=== PATIENT | male | born 1935 | race Caucasian/White ===

== ENCOUNTER 2016-08-08 14:31 | Inpatient (IN) | payer MEDICARE, OTHER ==
--- NOTE | ~2016-08-08 | DS ---
Discharge Summary [facility] [address] [place]. [address] NAME: HUA MINER : 33 STATUS : DIS IN PAT#: [id number] AGE: 81 ADM/REG DATE : 08/08/16 MR#: [id number] REPORT SERV DATE: 08/18/16 DICTATED BY: BRIANNA BENNETT DATE: 08/17/16 REPORT STATUS : Draft TRANSCRIBED BY: GERBER DATE: 08/17/16 Data Collection from hospitalization DISCHARGE DIAGNOSES: 1. Acute on chronic congestive heart failure. 2. Diabetes mellitus. 3. Ventricular tachycardia. 4. Moderate aortic stenosis. 5. Hyperlipidemia. 6. Ischemic cardiomyopathy. 7. History of orthostatic hypotension. 8. Former smoker. CONSULTATIONS: None. PROCEDURES: None. DISCHARGE MEDICATIONS: Xanax 0.125 to 0.25 mg at bedtime as needed, Pacerone 100 mg daily, vitamin D one tablet daily, Aricept 10 mg at bedtime, ferrous sulfate 325 mg daily, folic acid 1 mg daily, Glucophage 1000 mg twice a day, Crestor 20 mg at bedtime, Entresto 1 tablets twice a day, Zoloft 50 mg daily, Demadex 20 mg as directed, and Ultram 50 mg twice a day as needed. CONDITION AT DISCHARGE: Stable. DISPOSITION: The patient was discharged home on a low-sodium diet with activities as instructed. He will follow up with me on 09/21/2016 and will follow up in [facility] on 08/16/2016. HOSPITAL COURSE: This is an 81-year-old man who has acute on chronic systolic congestive heart failure. There have been a significant change in his clinical status. It was felt that he would need to have adjustment of his medications and further investigative studies as well as IV diuresis. He was admitted to the hospital at this time for further evaluation and treatment. Upon admission, an echocardiogram was performed. He has moderate left ventricle dysfunction with left ventricle ejection fraction of 35%, unchanged from 05/20/2016. Left ventricular diastolic dysfunction with moderate left atrial dilatation, right ventricle systolic function was moderately impaired. There was aortic sclerosis with [id number] stenosis unchanged from previous moderate severe mitral regurgitation which had progressed from a previous study. The following day, he was much improved overnight. The patient remained stable over the next couple of days. He had trace lower extremity edema. Discharge planning was performed. He was evaluated by Physical Therapy. On 08/11/2016, he was comfortable, he was alert and cooperative, his lungs were clear. Discharge instructions were given. Due to his improved and stable condition, he was discharged home with the above stated instructions. Information collected by: Desirae Sullivan Discharge Summary [facility] [address] [facility] [address] NAME: HUA MINER : 33 STATUS : DIS IN PAT#: [id number] AGE: 81 ADM/REG DATE : 08/08/16 MR#: [id number] REPORT SERV DATE: 08/18/16 DICTATED BY: BRIANNA BENNETT DATE: 08/17/16 REPORT STATUS : Draft TRANSCRIBED BY: GERBER DATE: 08/17/16 I submit the above information as my discharge summary. EMORY/GERBER Brianna Bennett M.D. / [id number] CC: Jose Villagran D.O.
[~2016-08-08 14:31] MED LIST: ADVIL PO; ARICEPT10 PO; ARICEPT5 PO; ASAB PO; BETAPACE80 PO; CORDARONE PO; CYANO1000T PO; FEOSOL200 MG PO; FERROUS SULF325 M1 PO; FOLIC PO; GLUCOV5 PO; GLUCPH PO; HYDROCHLOROT12.5 MG PO; LIDODERM TOP; LOTE5 PO; MICROZIDE PO; T PO; TOPXL25 PO; VICTOZA18 MG/3 ML SC; VITAMIN B-121000 MC1 SL; X25 PO; XANAX2 MG PO; ZOCOR20 PO; ZOL50 PO; [UNRECOGNIZED DRUG - REMARK]
[2016-08-08] MEDS ORDERED: VITAMIN B PO (14:59)
[2016-08-08] MEDS ORDERED: ZOL50 PO (14:59)
[2016-08-08] MEDS ORDERED: ULTRAM50 PO (15:06)
[2016-08-08 15:18] LABS: A/G RATIO 0.9 (0.7-1.9); ALBUMIN 3.6 G/DL (3.5-5.0); ALKALINE PHOSPHATASE 71 U/L (45-117); BUN (BLOOD UREA NITROGEN) 13 MG/DL (6-23); CALCIUM, SERUM 9.4 MG/DL (8.5-10.4); CHLORIDE, SERUM 98 MMOL/L (96-112); CO2 (CARBON DIOXIDE) 29 MMOL/L (24-34); CREATININE 0.81 MG/DL (0.70-1.30); GFR AFRICAN AMERICAN 97 ML/MIN (>=60); GFR NON AFRICAN AMERICAN 83 ML/MIN (>=60); GLOBULIN 3.9 G/DL (2.5-4.1); GLUCOSE, SERUM 161 MG/DL (60-99); IRON, SERUM 59 MCG/DL (35-150); POTASSIUM, SERUM 3.3 MMOL/L (3.5-5.3); SGOT(AST) 33 U/L (5-40); SGPT(ALT) 50 U/L (5-65); SODIUM, SERUM 137 MMOL/L (135-148); TOTAL BILIRUBIN 0.8 MG/DL (0-1.2); TOTAL PROTEIN 7.5 G/DL (6.0-8.5)
[2016-08-08 15:20] LABS: BASOPHILS 0.2 %; BASOPHILS ABSOLUTE 0.02 10/3/uL (0.0-0.16); EOSINOPHILS 4.9 %; EOSINOPHILS ABSOLUTE 0.44 10/3/uL (0.0-0.53); IMMATURE GRANULOCYTES 0.2 %; IMMATURE GRANULOCYTES ABSOLUTE 0.02 10/3/uL (0.0-0.11); LYMPHOCYTES 21.9 %; LYMPHOCYTES ABSOLUTE 1.95 10/3/uL (0.67-4.30); MEAN CORPUS HGB CONC 34.5 g/dL (32.0-36.0); MEAN CORPUSCULAR HEMOGLOB 32.7 pg (26.0-34.0); MEAN CORPUSCULAR VOLUME 94.8 fL (80-100); MEAN PLATELET VOLUME 9.8 fL (9.2-13.0); MONOCYTES 6.1 %; MONOCYTES ABSOLUTE 0.54 10/3/uL (0.21-1.20); NEUTROPHILS 66.7 %; NEUTROPHILS ABSOLUTE 5.95 10/3/uL (2.02-8.40); PLATELET COUNT 251 10/3/uL (150-400); RBC DISTRIBUTION WIDTH 13.4 % (12.0-16.0); RED CELL COUNT 4.59 10/6/uL (4.7-6.1); WHITE BLOOD CELLS 8.9 10/3/uL (4.5-10.5)
[2016-08-08 15:21] LABS: HEMATOCRIT 43.5 % (40.0-51.0); MANUAL DIFF NO %
[2016-08-09 06:29] LABS: BUN (BLOOD UREA NITROGEN) 11 MG/DL (6-23); CALCIUM, SERUM 8.5 MG/DL (8.5-10.4); CHLORIDE, SERUM 98 MMOL/L (96-112); CO2 (CARBON DIOXIDE) 30 MMOL/L (24-34); CREATININE 0.87 MG/DL (0.70-1.30); GFR AFRICAN AMERICAN 94 ML/MIN (>=60); GFR NON AFRICAN AMERICAN 81 ML/MIN (>=60); GLUCOSE, SERUM 166 MG/DL (60-99); POTASSIUM, SERUM 3.4 MMOL/L (3.5-5.3); SODIUM, SERUM 139 MMOL/L (135-148)
[2016-08-09 10:46] LABS: POTASSIUM, SERUM 4.1 MMOL/L (3.5-5.3)
[2016-08-10 06:08] LABS: CALCIUM, SERUM 8.9 MG/DL (8.5-10.4); CHLORIDE, SERUM 97 MMOL/L (96-112); CO2 (CARBON DIOXIDE) 31 MMOL/L (24-34); CREATININE 1.03 MG/DL (0.70-1.30); GFR AFRICAN AMERICAN 78 ML/MIN (>=60); GFR NON AFRICAN AMERICAN 67 ML/MIN (>=60); GLUCOSE, SERUM 177 MG/DL (60-99); POTASSIUM, SERUM 4.4 MMOL/L (3.5-5.3); SODIUM, SERUM 137 MMOL/L (135-148)
[2016-08-10 06:12] LABS: BUN (BLOOD UREA NITROGEN) 18 MG/DL (6-23)
[2016-08-10] MEDS ORDERED: SACU1TAB PO (09:01)
[2016-08-10] MEDS ORDERED: DEMA20 PO (09:03)
[2016-08-10] MEDS ORDERED: CRESTOR20 MG PO (09:03)
[2016-08-10] MEDS ORDERED: PACERONE100 MG PO (09:09)
[2016-08-11 04:29] LABS: CHLORIDE, SERUM 95 MMOL/L (96-112); CO2 (CARBON DIOXIDE) 28 MMOL/L (24-34); CREATININE 1.28 MG/DL (0.70-1.30); GFR AFRICAN AMERICAN 60 ML/MIN (>=60); GFR NON AFRICAN AMERICAN 52 ML/MIN (>=60); GLUCOSE, SERUM 166 MG/DL (60-99); POTASSIUM, SERUM 3.6 MMOL/L (3.5-5.3); SODIUM, SERUM 134 MMOL/L (135-148)
[2016-08-11 04:39] LABS: BUN (BLOOD UREA NITROGEN) 22 MG/DL (6-23)
== END 2016-08-11 15:44 | disposition home or self-care (01) | DRG 292 ==
LOC: SSU1 14:31
PROVIDERS: Internal Medicine Clinical Cardiac Electrophysiology
DX: I50.23 Acute on chronic systolic (congestive) heart failure (principal); I47.2 Ventricular tachycardia; E11.9 Type 2 diabetes mellitus without complications; I35.0 Nonrheumatic aortic (valve) stenosis; I25.10 Atherosclerotic heart disease of native coronary artery without angina pectoris; I25.5 Ischemic cardiomyopathy; E78.5 Hyperlipidemia, unspecified; I95.1 Orthostatic hypotension; I11.0 Hypertensive heart disease with heart failure; Z95.810 Presence of automatic (implantable) cardiac defibrillator
CPT/HCPCS: 71020; 80048; 80053; 82962; 83540; 83735; 84132; 85025; 97161-GP; A9270-GY; C8929; G8978-CJ-GP; G8979-CI-GP; Q9957